=== PATIENT | male | born 1950 | race Caucasian/White ===

== ENCOUNTER 2019-01-08 06:43 | Day surgery (SDC) | payer MEDICARE ==
[~2019-01-08 06:43] MED LIST: Midazolam 1 MG/ML 2 ML SDV ONE; Propofol 200 MG/20 ML SDV ONE; fentaNYL 100 MCG/2 ML SDV ONE
[2019-01-08] MEDS: Dextrose 5%-Lactated Ringers 1,000 ML IV SCH (07:40)
--- NOTE | 2019-01-11 07:34 | OR ---
DATE OF PROCEDURE: 01/08/2019 PREOPERATIVE DIAGNOSIS: Indications for screening colonoscopy. POSTOPERATIVE DIAGNOSIS: A single small polyp in the distal sigmoid colon (20 cm). OPERATIVE PROCEDURE: Flexible colonoscopy with polypectomy by snare technique. ANESTHESIA: IV sedation. INDICATIONS FOR PROCEDURE: This is a 68-year-old male presenting for followup colonoscopy. He in the past has had polyps removed and now meets criteria for the followup screening colonoscopy. Potential risks of the procedure including bleeding and perforation were discussed, and the patient wishes to proceed. DETAILS OF PROCEDURE: The patient was taken to the operating room and placed in a left lateral decubitus position. IV sedation was administered, after which the initial digital rectal exam was performed that was unremarkable. Colonoscope was then passed into the rectum with retroflexion revealing uncomplicated hemorrhoidal columns. The scope was eventually passed to the level of the cecum. The prep was fairly good with only a small amount of liquid stool being present. The only abnormality noted was that of a single small polyp at around 20 cm from the dentate line, this measured perhaps in the range of 3 mm. This was encircled at its base with a cautery snare and excised by that means and evacuated and sent for histologic evaluation. Apart from that, no additional abnormalities were noted. The scope was withdrawn and the above findings were then reconfirmed. The plan will be to await the pathology report. Should this be an adenomatous polyp of some sort, the next colonoscopy should probably be in 2 years. If it is not an adenomatous polyp or a hyperplastic polyp, the next colonoscopy should be in 5 years. We will contact him when we get the path report back. Dalton Gardiner MD /[id number]
== END 2019-01-08 09:45 | disposition home or self-care (01) ==
LOC: JP.SDS 06:43
PROVIDERS: ATTEND Surgery
DX: Z12.11 Encounter for screening for malignant neoplasm of colon (principal); K63.5 Polyp of colon; Z86.010 Personal history of colon polyps; M10.9 Gout, unspecified; I10 Essential (primary) hypertension; E66.9 Obesity, unspecified; Z68.39 Body mass index [BMI] 39.0-39.9, adult; Z79.1 Long term (current) use of non-steroidal anti-inflammatories (NSAID)
CPT/HCPCS: J2250; J2704; J3010; J7042

== ENCOUNTER 2022-04-04 07:20 | Inpatient (IN) | payer MEDICARE ==
[2022-04-04] MEDS ORDERED: Nozin Nasal Sanitizer NASBOTH SCH (08:15)
[2022-04-04] MEDS ORDERED: Lactated Ringers 1,000 ML IV SCH (08:15)
[2022-04-04] MEDS ORDERED: Propofol 200 MG/20 ML SDV ONE ×5 (08:20→12:48)
[2022-04-04] MEDS ORDERED: fentaNYL 100 MCG/2 ML SDV ONE (08:20)
[2022-04-04] MEDS ORDERED: Midazolam 1 MG/ML 2 ML SDV ONE ×2 (08:20→11:25)
[2022-04-04] MEDS ORDERED: Ketorolac 30 MG/ML SDV ONE (08:37)
[2022-04-04] MEDS ORDERED: ceFAZolin 2 GM in Sodium Chloride 0.9% 50 ML IV ONE (09:15)
[2022-04-04] MEDS ORDERED: ePHEDrine 50 MG/ML SDV ONE (10:43)
[2022-04-04] MEDS: Tranexamic Acid 1,000 MG in Sodium Chloride 0.9% 100 ML IV ONE ×2 (11:00→15:10)
[2022-04-04] MEDS ORDERED: Lactated Ringers 1,000 ML ONE (11:10)
[2022-04-04] MEDS: Bupivacaine 0.5% 50 ML MDV ONE ×2 (11:27→12:52)
[2022-04-04] MEDS ORDERED: Morphine 2 MG/ML SYRINGE SUBCUT PRN (13:17)
[2022-04-04] MEDS ORDERED: Ondansetron 4 MG Tab.DIS PO PRN (13:17)
[2022-04-04] MEDS: Sodium Chloride 0.9% 1,000 ML IV SCH ×2 (14:37→23:11)
[2022-04-04] MEDS: Acetaminophen 325 MG Tab PO SCH ×2 (14:38→20:22)
[2022-04-04] MEDS: Acetaminophen/oxyCODONE 325-5 MG Tab PO PRN ×2 (15:27→20:21)
[2022-04-04] MEDS: ceFAZolin 1 GM in Premix Bag 1 BAG IV SCH (17:11)
[2022-04-04] MEDS: Magnesium Hydroxide 400 MG/5 ML Susp 30 ML Cup PO PRN (19:30)
[2022-04-04] MEDS: Nozin Nasal Sanitizer NASBOTH SCH (20:21)
[2022-04-04] MEDS: Aspirin 325 MG Tab.EC PO SCH (20:21)
[2022-04-05] MEDS: ceFAZolin 1 GM in Premix Bag 1 BAG IV SCH ×2 (00:15→08:05)
[2022-04-05] MEDS: Acetaminophen 325 MG Tab PO SCH ×4 (02:34→20:45)
[2022-04-05] MEDS: Acetaminophen/oxyCODONE 325-5 MG Tab PO PRN (02:57)
[2022-04-05] MEDS: Celecoxib 200 MG Cap PO PRN (02:58)
[2022-04-05] MEDS: Acetaminophen/HYDROcodone 325-5 MG Tab PO PRN ×2 (07:29→12:20)
[2022-04-05] MEDS: Magnesium Hydroxide 400 MG/5 ML Susp 30 ML Cup PO PRN (08:04)
[2022-04-05] MEDS: Docusate Sodium 100 MG Cap PO SCH (08:05)
[2022-04-05] MEDS: Aspirin 325 MG Tab.EC PO SCH ×2 (08:05→20:47)
[2022-04-05] MEDS: Nozin Nasal Sanitizer NASBOTH SCH ×2 (08:05→20:46)
[2022-04-05] MEDS: NIFEdipine 30 MG Tab.ER PO SCH (12:20)
[2022-04-05] MEDS: traMADol 50 MG Tab PO PRN (16:26)
[2022-04-05] MEDS: Sodium Chloride 0.9% 1,000 ML IV SCH (19:48)
[2022-04-06] MEDS: Celecoxib 200 MG Cap PO PRN (00:03)
[2022-04-06] MEDS: Sodium Chloride 0.9% 1,000 ML IV SCH ×2 (03:24→11:32)
[2022-04-06] MEDS: Acetaminophen 325 MG Tab PO SCH ×4 (03:24→20:31)
[2022-04-06] MEDS: Nozin Nasal Sanitizer NASBOTH SCH ×2 (08:10→20:32)
[2022-04-06] MEDS: Docusate Sodium 100 MG Cap PO SCH (08:15)
[2022-04-06] MEDS: Aspirin 325 MG Tab.EC PO SCH ×2 (08:16→20:31)
[2022-04-06] MEDS: NIFEdipine 30 MG Tab.ER PO SCH (08:17)
[2022-04-06] MEDS: Magnesium Hydroxide 400 MG/5 ML Susp 30 ML Cup PO PRN (08:29)
[2022-04-06] MEDS: traMADol 50 MG Tab PO PRN ×2 (09:34→20:32)
[2022-04-07] MEDS: Acetaminophen 325 MG Tab PO SCH ×3 (02:40→14:10)
[2022-04-07] MEDS: Nozin Nasal Sanitizer NASBOTH SCH (08:15)
[2022-04-07] MEDS: NIFEdipine 30 MG Tab.ER PO SCH (08:16)
[2022-04-07] MEDS: Aspirin 325 MG Tab.EC PO SCH (08:17)
[2022-04-07] MEDS: Docusate Sodium 100 MG Cap PO SCH (08:17)
[2022-04-07] MEDS: traMADol 50 MG Tab PO PRN ×2 (08:22→14:11)
== END 2022-04-07 16:13 | disposition home health service (06) | DRG 470 ==
LOC: JP.SDS 07:20 → JP.MS 13:17 → JP.SDS 04-05 11:30 → JP.MS 04-05 11:30
PROVIDERS: ADMIT Specialist; ATTEND Specialist
PROC: 0SR90JA Replacement of Right Hip Joint with Synthetic Substitute, Uncemented, Open Approach (ICD-10-PCS; principal; 2022-04-04)
DX: M16.11 Unilateral primary osteoarthritis, right hip (principal); Z68.42 Body mass index [BMI] 45.0-49.9, adult; Z98.890 Other specified postprocedural states; M10.9 Gout, unspecified; I10 Essential (primary) hypertension; Z86.010 Personal history of colon polyps; M19.90 Unspecified osteoarthritis, unspecified site; E78.5 Hyperlipidemia, unspecified; I35.1 Nonrheumatic aortic (valve) insufficiency
CPT/HCPCS: 36415; 72170; 72170-26; 85027; 97110-GP; 97116-GP; 97162-GP; 97165-GO; 97530-GP; 97535-GO; 97535-GP; A9270-GY; C1713; C1776; J0690; J1885; J2250; J2270; J2704; J3010; J3490; J7030; J7120

== ENCOUNTER 2025-05-29 06:29 | Day surgery (SDC) | payer MEDICARE ==
[~2025-05-29 06:29] MED LIST changes: +Lactated Ringers 1,000 ML IV SCH; -Midazolam 1 MG/ML 2 ML SDV ONE; -Propofol 200 MG/20 ML SDV ONE; -fentaNYL 100 MCG/2 ML SDV ONE
[2025-05-29] MEDS: Lactated Ringers 1,000 ML IV SCH (06:53)
[2025-05-29] MEDS ORDERED: fentaNYL 100 MCG/2 ML SDV ONE (07:11)
[2025-05-29] MEDS ORDERED: Propofol 200 MG/20 ML SDV ONE ×2 (07:11→07:44)
== END 2025-05-29 09:25 | disposition home or self-care (01) ==
LOC: JP.SDS 06:29
PROVIDERS: ATTEND Internal Medicine
DX: Z12.11 Encounter for screening for malignant neoplasm of colon (principal); D12.8 Benign neoplasm of rectum; K57.30 Diverticulosis of large intestine without perforation or abscess without bleeding; I10 Essential (primary) hypertension; Z91.09 Other allergy status, other than to drugs and biological substances; Z79.899 Other long term (current) drug therapy; Z86.0100 Personal history of colon polyps, unspecified
CPT/HCPCS: 00811; 45380; J2704; J3010; J7120